=== PATIENT | male | born 1995 | race Caucasian/White ===

== ENCOUNTER 2017-06-04 17:00 | Outpatient (RCR) | payer OTHER, SELFPAY ==
--- NOTE | 2017-06-01 16:55 | HP.PTEVAL_ITS ---
Patient's Visit Information SENIA ZAVALA is a 22 year old M referred to Physical Therapy by [place] Tolentino DO [email or web address] with a diagnosis of LEFT ANKLE STRAIN. Date of Evaluation: 06/01/17 Physical Therapist: Malcolm Gaitan PT, - Visit Plan Frequency: 2-3x /Week Duration: 4-6 Weeks Plan: stick/foam rolling,MANUAL THERAPY STM G-S,MODALITIES ,ECCENTIC STRENGTHENING,SPORT SIMULATION WHEN ABLE - Subjective Subjective: This 22 y/o male presents physical therapy with left calf strain playing basketabll with tigtness when jumping. Patient had swelling noticed briusing. Patient tried to blasketball for about one weak noticed more pain. Seen DR Tolentino stained calf. Denies parathesia/tingling stiff at night. During general activities no pain. Tried to run some soreness. VOCATION: [employer]. SOCIAL: SINGLE - Pain Left Ankle Pain Intensity (Out of 10): 3 Pain Intensity Range: 10 - Objective POSTURE: frontal plane mechanics. PALPATION: soleus tender lateral head , ecchymosis. GAIT: normal timothy. PROPRIOCEPTION: inact. AROM:DF 5 degrees, PF 70 degrees,EV 5 degrees,IN 40 degrees. MMT: G-S 4-/5,anterior tibials 4/5, penoneus 4/5,posterior tibilais 4/5. FLEXABLITY : G-S mild tightness. DE SOUZA TEST: - - Goals Goal 1:: Independant with HEP Goal Time Frame: 4-6 Weeks Goal 2:: Patient to be 90% improve with less pain with all activity to included sports Goal Time Frame: 4-6 Weeks Goal 3:: Patient to have no tenderness of G-S Goal Time Frame: 4-6 Weeks Goal 4:: Patient to increase strength G-S to 5/5 to return to sport Goal Time Frame: 4-6 Weeks Goal 5:: Patient be able to return to sport activity with running ,jumping with basketball Goal Time Frame: 4-6 Weeks - Rehabilitation Potential Physical Therapy Diagnosis: This 22 patient has G-SOLEUS strain very tender medal head of soleus with weakness thus impairs ability to return to sport activity Rehabilitation Potential: Good - Anticipated Interventions Patient/Client Instruction: Educate patient on: Condition, Plan of Care For the Purpose of:: To decrease pain, To increase ROM, To improve nutrient delivery to tissue, To increase oxygenation perfusion, To improve ability to perform ADL's, To increase tolerance to activity/condition/position, To improve performance and independence with ADL's, To decrease level of supervision to perform tasks, To improve ability of physical actions for home/community/work/ leisure, To improve health of tissue, To decrease soft tissue restriction, To increase flexibility/ROM, To improve ability to perform tasks related to life management Therapeutic Exercise to Include: Strength training, Balance training, Flexibilty training Comment: eccentrics For the Purpose of:: To decrease pain, To increase ROM, To improve nutrient delivery to tissue, To increase oxygenation perfusion, To increase tolerance to activity/condition/position, To improve ability of physical actions for home/ community/work/leisure, To improve health of tissue, To decrease soft tissue restriction, To increase flexibility/ROM, To improve ability to perform tasks related to life management Other: sports Manual Therapy Techniques to Include: Mobilization, Soft tissue mobilization For the Purpose of:: To decrease pain, To increase ROM, To improve nutrient delivery to tissue, To increase oxygenation perfusion, To improve health of tissue, To decrease soft tissue restriction, To increase flexibility/ROM IF ES: Yes Cryotherapy (ice pack, ice massage): Yes Thermo therapy (hot pack): Yes Ultrasound (thermal/non thermal): Yes For the Purpose of:: To decrease pain, To increase ROM, To improve nutrient delivery to tissue, To increase oxygenation perfusion Thank you for the opportunity to evaluate your patient. For Medicare and Medicare HMO plans, please review the plan of care and approve it. It will need to be FAXED BACK to us at [phone] for Medicare purposes. Please let me know if there are questions or concerns regarding this plan of care. Physician Signature: Date:
--- NOTE | 2017-09-02 09:57 | HP.PTDCNRP_ITS ---
HP - Discharge Summary (1) - Patient Information SENIA ZAVALA was seen in my office for initial evaluation on 06/01/17. The following Plan of Care was established for this patient: Initial Frequency: 2-3x /Week Initial Duration: 4-6 Weeks - Anticipated Interventions Patient/Client Instruction: Educate patient on: Condition, Plan of Care For the Purpose of:: To decrease pain, To increase ROM, To improve nutrient delivery to tissue, To increase oxygenation perfusion, To improve ability to perform ADL's, To increase tolerance to activity/condition/position, To improve performance and independence with ADL's, To decrease level of supervision to perform tasks, To improve ability of physical actions for home/community/work/ leisure, To improve health of tissue, To decrease soft tissue restriction, To increase flexibility/ROM, To improve ability to perform tasks related to life management Therapeutic Exercise to Include: Strength training, Balance training, Flexibilty training For the Purpose of:: To decrease pain, To increase ROM, To improve nutrient delivery to tissue, To increase oxygenation perfusion, To increase tolerance to activity/condition/position, To improve ability of physical actions for home/ community/work/leisure, To improve health of tissue, To decrease soft tissue restriction, To increase flexibility/ROM, To improve ability to perform tasks related to life management Other: sports Manual Therapy Techniques to Include: Mobilization, Soft tissue mobilization For the Purpose of:: To decrease pain, To increase ROM, To improve nutrient delivery to tissue, To increase oxygenation perfusion, To improve health of tissue, To decrease soft tissue restriction, To increase flexibility/ROM IF ES: Yes Cryotherapy (ice pack, ice massage): Yes Thermo therapy (hot pack): Yes Ultrasound (thermal/non thermal): Yes For the Purpose of:: To decrease pain, To increase ROM, To improve nutrient delivery to tissue, To increase oxygenation perfusion This patient was last seen in our office 06/04/17. Pertinent comments regarding their Physical therapy will appear below: Patient seen for PT for calf strain focusing on eccentrics ,STM ,foam rolling and stretching. Patient did well thus is d/c. At this point I will be discontinuing this patient from physical therapy. I would be happy to see this patient again in the future if found appropriate by the physician. Thank you! Malcolm Gaitan, PT,
== END 2017-06-04 19:00 | disposition home or self-care (01) ==
LOC: PT 17:00
PROVIDERS: Family Provider Family Medicine; PCP Family Medicine; Visit Provider Orthopaedic Surgery
DX: S86.112D Strain of other muscle(s) and tendon(s) of posterior muscle group at lower leg level, left leg, subsequent encounter (principal)
CPT/HCPCS: 97014; 97110; 97140; 97161; G0283

== ENCOUNTER 2017-08-03 01:33 | Emergency (ER) | payer OTHER, SELFPAY ==
[2017-08-03 01:35] VITALS: BP 125/68; PULSE 76; RESP 16; TEMP 36.7; O2SAT 98; BMI 27.8
--- NOTE | 2017-08-03 01:50 | ED.VISSUMM ---
- ER Visit Summary Date of Service: 08/03/17 Chief Complaint: Left ear pain History of Present Illness: The patient is a [address] Wilkerson. He reports that he has left ear pain that began yesterday. Is a sharp, throbbing pain is 10 at 10 worsening a 10 currently. Is worsened by nothing. Been unrelieved by Mucinex. Reports that he gets this approximately twice a year and that it usually resolves with a Z-Chester. She denies any fever. He has a sore throat nonproductive cough began yesterday as well. He has a headache this 4-10 severity. He has a history of similar headaches. Physical Examination: Vitals: Stable. Afebrile. General: Well-nourished and well-developed. Head: Normocephalic atraumatic. HEENT: Right TM is normal. Left TM is erythematous, dull, and has decreased landmarks. Neck: Supple, no lymphadenopathy. No JVD. Nontender. Cardiovascular: Regular rate and rhythm. No murmurs. Respiratory: No respiratory distress. Clear to auscultation bilaterally. Abdominal: Soft, nontender, nondistended, normal bowel sounds. No guarding, rebound, or peritoneal signs. Back: Nontender. Extremities: Nontender, no edema. Skin: Normal color, no rash. Neurologic: Alert and oriented ?3. Cranial nerves II through XII are intact. Normal strength and sensation. Psych: Normal affect. Emergency Department Course and Treatment: Patient is treated with Zithromax, Tylenol, and naproxen. He is resting comfortably. Treatment Plan: Patient will be discharged with Zithromax, naproxen, and 12 [place]. Instructed to follow-up with his primary care physician 1 week if not improving. Return to the emergency department for any worsening symptoms. Disposition: To home in improved and stable condition. Impression: 1. Left otitis media. This note was generated with [employer] dictation software. It may contain incorrect words, spelling, and punctuation that were not noted in review of the chart prior to signing ED Disposition - Plan for ED Patient: Disposition: Home or Assisted Living Chief Complaint: Ear Problem Instructions: ED Otitis Media Acute Adult Prescriptions: Azithromycin [Zithromax] 250 mg PO DAILY #4 tablet Hydrocodone/Acetaminophen [[place] 5-325 Tablet] 1 - 2 each PO 4X/DAY PRN PRN 3 Days #12 tablet PRN Reason: Pain Naproxen [Naprosyn] 500 mg PO BID #14 tablet Referrals: Albert Wilkerson MD [Primary Care Provider] - 1 Week if not improving
[2017-08-03] MEDS: Azithromycin 250 MG Tablet 500 MG PO (02:04)
[2017-08-03] MEDS: Acetaminophen 325 MG Tablet 1000 MG PO (02:04)
[2017-08-03] MEDS: Naproxen 250 MG Tablet 500 MG PO (02:05)
[2017-08-03] MEDS: HYDROcodone Bitartrate/Apap 5/325 Tablet PO (02:06)
[2017-08-03 02:09] VITALS: PULSE 74; RESP 16; O2SAT 98
== END 2017-08-03 02:10 | disposition home or self-care (01) ==
LOC: ED 01:56
PROVIDERS: Emergency Provider Emergency Medicine; Family Provider Family Medicine; PCP Family Medicine
DX: H66.92 Otitis media, unspecified, left ear (principal)
CPT/HCPCS: 99283